=== PATIENT | female | born 2000 | race Hispanic/Latino ===

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

== ENCOUNTER 2020-12-23 15:34 | Day surgery (SDC) | payer OTHER ==
[2020-12-23 16:20] LABS: Hemoglobin 14.7 g/dL (12.0-16.0); Mean Corpuscular HGB CONC 33.7 g/dL (32.0-36.0); Mean Corpuscular Hemoglobin 31.5 pg (25.0-35.0); Mean Corpuscular Volume 93.5 fL (78.0-98.0); Platelet Count 223 thou/uL (130-400); RBC Distribution Width 15.2 % (11.5-14.5); Red Blood Cell (RBC) Count 4.68 mill/uL (4.00-5.20); White Blood Cell (WBC) Count 25.3 thou/uL (4.8-10.8)
[2020-12-23 16:22] LABS: Bilirubin Negative (Negative); Blood, Urine 3+ (Negative); Clarity Clear (Clear); Glucose, Urine (Dipstick) Normal (Negative); Ketone, Urine 10 mg/dL (Negative); Leukocyte 250 Leu/uL (Negative); Nitrite Negative (Negative); Protein, Urine (Dipstick) 30 mg/dL (Neg-Trace); Specific Gravity, Urine 1.026 (1.002-1.036); Squamous Epithelial 0-3 HPF (0-3)
[2020-12-23 16:25] LABS: Bacteria/HPF Rare-Few HPF (None Seen)
[2020-12-23] MEDS ORDERED: Ondansetron PF 4 MG/2 ML Vial ONE ×2 (16:28→20:55)
[2020-12-23] MEDS ORDERED: Morphine 4 MG/ML VIAL ONE ×2 (16:28→19:13)
[2020-12-23 16:30] LABS: BHCG - Serum Negative (NEGATIVE); Pregs Control Background? CLEAR/WHITE (CLR/WHITE); Pregs Control Bar Appear? YES (CONTROL BAR)
[2020-12-23 16:37] LABS: Band 8 % (5-11); Lymphocytes 9 % (28-48); MDiff Complete? YES; Metamyelocyte 1 % (0-0); Monocytes 9 % (0-4); Neutrophil 73 % (31-61); Platelet Morphology Comment Appears Adequate; RBC Morphology Normal
[2020-12-23 17:49] LABS: ALT (SGPT) 12 U/L (8-55); AST (SGOT) 18 U/L (5-34); Albumin 4.7 g/dL (3.5-5.0); Alkaline Phosphatase 109 U/L (40-100); Anion Gap 17 mmol/L (10-20); BUN (Urea Nitrogen) 8 mg/dL (7.0-18.7); Bilirubin, Total 0.9 mg/dL (0.2-1.2); Calc. Creatinine Clearance 0 mL/min (70-130); Calcium 10.4 mg/dL (7.8-10.44); Carbon Dioxide 21 mmol/L (22-29); Chloride 100 mmol/L (98-107); Globulin 4.3 g/dL (2.4-3.5); Glucose 99 mg/dL (70-105); Potassium 3.7 mmol/L (3.5-5.1); Sodium 134 mmol/L (136-145)
[2020-12-23] MEDS ORDERED: Piperacillin/Tazobactam 3.375 GM VIAL ONE (18:02)
[2020-12-23] MEDS ORDERED: Lidocaine 2% Jelly 5 ML TUBE ONE (20:24)
[2020-12-23] MEDS ORDERED: Fentanyl 100 MCG/2 ML VIAL ONE ×2 (20:24→21:18)
[2020-12-23] MEDS ORDERED: Midazolam HCl 2 mg/2 ml Vial ONE (20:24)
[2020-12-23] MEDS ORDERED: Lidocaine 1% w/Epinephrine 1:100K 20 ML VIAL ONE (20:25)
[2020-12-23] MEDS ORDERED: Bupivacaine 0.25% HCL 30 ML VIAL ONE (20:25)
[2020-12-23] MEDS ORDERED: Rocuronium Bromide 10 MG/ML (10ML VIAL) ONE (20:55)
[2020-12-23] MEDS ORDERED: PROPOFOL 200 MG/20 ML VIAL ONE (20:55)
[2020-12-23] MEDS ORDERED: Succinylcholine 200 MG/10 ml SYRINGE FS ONE (20:55)
[2020-12-23] MEDS ORDERED: Glycopyrrolate 0.2 MG/ML 5 ML SYRINGE ONE (20:55)
[2020-12-23] MEDS ORDERED: Dexamethasone 20 MG/5 ML VIAL ONE (20:55)
[2020-12-23] MEDS ORDERED: Lidocaine 1% PF 5 ML VIAL ONE (20:55)
[2020-12-23] MEDS ORDERED: Ketorolac Tromethamine 30 MG/ML VIAL IVP PRN (21:05)
[2020-12-23] MEDS ORDERED: HYDROmorphone 2 MG/ML VIAL SLOW IVP PRN (21:05)
[2020-12-23] MEDS ORDERED: Promethazine HCl 25 MG/ML VIAL IM PRN (21:05)
[2020-12-23] MEDS ORDERED: Ondansetron HCl/PF 4 MG/2 ML Vial IVP PRN (21:05)
[2020-12-23] MEDS ORDERED: Promethazine HCl 25 MG/ML VIAL SLOW IVP PRN (21:05)
[2020-12-23 21:07] LABS: SARS-CoV-2 NAA Rapid Test Not Detected (NotDetected)
[2020-12-23] MEDS ORDERED: HYDROcodone/Acetaminophen 5/325 mg Tablet ONE (22:10)
== END 2020-12-23 22:53 | disposition home or self-care (01) ==
LOC: ERS 15:34 → SDC/OP 20:51
PROVIDERS: ATTEND Surgery
PROC: 0DTJ4ZZ Resection of Appendix, Percutaneous Endoscopic Approach (ICD-10-PCS; principal; 2020-12-23)
DX: K35.33 Acute appendicitis with perforation, localized peritonitis, and gangrene, with abscess (principal)
CPT/HCPCS: 36415; 74177; 76856; 80053; 81003; 81015; 83690; 84703; 85025; 88304; 96365; 96375; 96376; J1100; J2250; J2270; J2405; J2543; J2704; J3010; S0020; U0002

== ENCOUNTER 2021-07-27 15:59 | Emergency (ER) | payer OTHER ==
[2021-07-27] MEDS ORDERED: Acetaminophen 500 MG TAB ONE (17:19)
[2021-07-27] MEDS ORDERED: Ondansetron PF 4 MG/2 ML Vial ONE (17:19)
[2021-07-27 17:30] LABS: Bacteria/HPF None Seen HPF (None Seen); Bilirubin Negative (Negative); Blood, Urine Negative (Negative); Clarity Clear (Clear); Glucose, Urine (Dipstick) Normal (Negative); Ketone, Urine 80 mg/dL (Negative); Leukocyte Negative Leu/uL (Negative); Nitrite Negative (Negative); Protein, Urine (Dipstick) 30 mg/dL (Neg-Trace); RBC/HPF 0-3 HPF (0-3); Specific Gravity, Urine 1.033 (1.002-1.036); Urobilinogen Normal mg/dL (Less than 2); WBC/HPF 0-3 HPF (0-3)
[2021-07-27 17:41] LABS: #Eosinphils 0.1 thou/uL (0.0-0.7); #Lymphocytes 1.2 thou/uL (1.20-3.40); #Monocytes 0.7 thou/uL (0.11-0.59); #Neutrophils 8.6 thou/uL (1.40-6.50); %Basophils 0.2 % (0.0-1.0); %Eosinophils 0.6 % (0.0-10.0); %Lymphocytes 11.6 % (28.0-48.0); %Monocytes 6.2 % (0.0-4.0); %Neutrophils 81.4 % (31.0-61.0); Hemoglobin 13.6 g/dL (12.0-16.0); Mean Corpuscular HGB CONC 34.3 g/dL (32.0-36.0); Mean Corpuscular Hemoglobin 32.2 pg (25.0-35.0); Mean Corpuscular Volume 93.8 fL (78.0-98.0); Platelet Count 200 thou/uL (130-400); RBC Distribution Width 12.1 % (11.5-14.5); Red Blood Cell (RBC) Count 4.24 mill/uL (4.00-5.20); White Blood Cell (WBC) Count 10.6 thou/uL (4.8-10.8)
[2021-07-27 18:09] LABS: ALT (SGPT) 108 U/L (8-55); AST (SGOT) 70 U/L (5-34); Alkaline Phosphatase 82 U/L (40-100); Anion Gap 11 mmol/L (10-20); BUN (Urea Nitrogen) 8 mg/dL (7.0-18.7); Bilirubin, Total 0.3 mg/dL (0.2-1.2); Calc. Creatinine Clearance 0 mL/min (70-130); Calcium 9.6 mg/dL (7.8-10.44); Carbon Dioxide 23 mmol/L (22-29); Chloride 106 mmol/L (98-107); Globulin 3.1 g/dL (2.4-3.5); Glucose 107 mg/dL (70-105); Potassium 3.9 mmol/L (3.5-5.1); Protein, Total 7.1 g/dL (6.0-8.3); Sodium 136 mmol/L (136-145)
[2021-07-27 18:26] LABS: BHCG - Serum POSITIVE (NEGATIVE); Pregs Control Background? CLEAR/WHITE (CLR/WHITE); Pregs Control Bar Appear? YES (CONTROL BAR)
== END 2021-07-27 18:54 | disposition home or self-care (01) ==
LOC: ERS 15:59
DX: O99.891 Other specified diseases and conditions complicating pregnancy (principal); R11.0 Nausea; Z3A.01 Less than 8 weeks gestation of pregnancy
CPT/HCPCS: 36415; 80053; 81003; 81015; 84703; 85025; 96374; J2405

== ENCOUNTER 2021-09-26 01:19 | Emergency (ER) | payer OTHER ==
[2021-09-26] MEDS ORDERED: Acetaminophen 500 MG TAB ONE (01:50)
== END 2021-09-26 03:40 | disposition home or self-care (01) ==
LOC: ERS 01:19
DX: S09.90XA Unspecified injury of head, initial encounter (principal); S50.12XA Contusion of left forearm, initial encounter; S60.222A Contusion of left hand, initial encounter; Y04.8XXA Assault by other bodily force, initial encounter